=== PATIENT | female | born 1975 | race Caucasian/White ===

== ENCOUNTER 2018-12-28 05:14 | Emergency (ER) | payer SELFPAY ==
[~2018-12-28] VITALS: Ht 170.2 cm; Wt 81.6 kg
--- OUTSIDE RECORDS SUMMARY | 2018-12-28 05:17 | XMS REPORT ---
Author Author [facility] Address Unknown Phone Unavailable Care Team Providers Care Blood Bank Manager Name Role Phone Unavailable Unavailable Payers Payer Name Policy Type Policy Number Effective Date Expiration Date Problems This patient has no known problems. Allergies, Adverse Reactions, Alerts Allergy Name Allergy Type Status Severity Reaction(s) Onset Date Inactive Date Treating Clinician Comments Shellfish DA Active U 2015-09-26 00:00:00 iodine DA Active SV 2013-07-12 00:00:00 sulfamethoxazole DA Active MO 2013-07-12 00:00:00 trimethoprim DA Active MO 2013-07-12 00:00:00 Medications This patient has no known medications.
--- NOTE | 2018-12-28 05:57 | Diagnostic Imaging Report ---
Exam: Right wrist Series. History: Status post fall on right wrist Comparison: None. Findings: 3 views of the right wrist. There is normal bone mineralization. Negative for acute, displaced fracture or dislocation. The joint spaces are preserved. No abnormal soft tissue calcification or mass. No soft tissue swelling. Impression: 1. No acute abnormalities. Signed by: Dr. Timo Joseph M.D. on 12/28/2018 5:54 AM
== END 2018-12-28 06:07 | disposition home or self-care (01) ==
LOC: FSED 05:14
DX: S63.521A Sprain of radiocarpal joint of right wrist, initial encounter (principal); W01.0XXA Fall on same level from slipping, tripping and stumbling without subsequent striking against object, initial encounter; Y92.830 Public park as the place of occurrence of the external cause
CPT/HCPCS: 99283